=== PATIENT | female | born 1965 | race Caucasian/White ===

== ENCOUNTER 2016-10-24 23:16 | Inpatient (IN) | payer OTHER ==
[~2016-10-24] VITALS: Ht 165.1 cm; Wt 84.4 kg
[~2016-10-24 23:16] MED LIST: BENAZEPRIL HYDR20 MG PO; BUTALB/APAP/CAF1 TAB PO; FLUOXETINE HYDR20 MG PO; HYD25 PO; LEVOTHYROXIN0.075 MG PO; SAVELLA50 MG PO
[2016-10-24 23:49] LABS: PLATELET COUNT 330 x10^3mcL (130-400); RED CELL DISTRIBUTION WIDTH 13.2 % (11.5-14.5)
[2016-10-24 23:50] LABS: BASOPHIL % 0 % (0-2)
[2016-10-24 23:57] LABS: CALCIUM 8.8 mg/dL (8.5-10.1); CARBON DIOXIDE 33.7 mmol/L (21-32); CHLORIDE SERUM 99 mmol/L (98-107); GFR1 > 60 mL/min; GLUCOSE SERUM 136 mg/dL (74-106); POTASSIUM SERUM 3.3 mmol/L (3.5-5.1); SODIUM SERUM 136 mmol/L (136-145)
[2016-10-25] VITALS (8 sets, daily range): BP systolic 91–116; BP diastolic 56–77; Ht 165.1 cm; Wt 84.4 kg
[2016-10-25 00:02] LABS: ALBUMIN 3.7 g/dL (3.4-5.0); ALKALINE PHOSPHATASE 116 U/L (46-116); ALT/SGPT 27 U/L (14-59); AST/SGOT 18 U/L (15-37); BILIRUBIN TOTAL 0.3 mg/dL (0.20-1.00); TOTAL PROTEIN, SERUM 7.9 g/dL (6.4-8.2)
[2016-10-25] MEDS ORDERED: METOPROLOL TART25 M1 PO (03:48)
[2016-10-25] MEDS ORDERED: CLARITIN10 MG PO (03:49)
[2016-10-25] MEDS ORDERED: ATORVASTATIN CA40 M1 PO (03:49)
[2016-10-25] MEDS ORDERED: ZOLOFT50 MG PO (03:49)
[2016-10-25] MEDS ORDERED: COUMADIN5 MG PO (03:49)
[2016-10-25] MEDS ORDERED: CYMBALTA60 M1 PO (03:49)
[2016-10-25] MEDS ORDERED: ASPIR 8181 MG PO (03:50)
[2016-10-25 04:16] LABS: CHOLESTEROL/HDL RATIO 2.6; PHOSPHOROUS 3.4 mg/dL (2.5-4.9)
[2016-10-25 04:24] LABS: T3 TOTAL 0.87 ng/mL
[2016-10-25 04:28] LABS: FREE T4 1.08 ng/dL (0.76-1.46); FREE THYROXINE INDEX 2.9 ug/dL (1.4-4.5); T4(THYROXINE) 9.3 ug/dL (4.7-13.3)
[2016-10-25 07:11] LABS: CALCIUM 8.1 mg/dL (8.5-10.1); CARBON DIOXIDE 31.2 mmol/L (21-32); CHLORIDE SERUM 102 mmol/L (98-107); CREATININE SERUM 0.9 mg/dL (0.6-1.0); GFR1 > 60 mL/min; GLUCOSE SERUM 124 mg/dL (74-106); POTASSIUM SERUM 3.7 mmol/L (3.5-5.1); SODIUM SERUM 137 mmol/L (136-145)
[2016-10-25 07:15] LABS: BASOPHIL % 0.2 % (0-2); PLATELET COUNT 270 x10^3mcL (130-400); RED CELL DISTRIBUTION WIDTH 13.2 % (11.5-14.5)
[2016-10-25 16:18] LABS: BASOPHIL % 0.1 % (0-2); PLATELET COUNT 245 x10^3mcL (130-400); RED CELL DISTRIBUTION WIDTH 12.9 % (11.5-14.5)
[2016-10-25 20:35] LABS: UA SPECIFIC GRAVITY <=1.005 (1.005-1.035); microscopic required? YES; urine erythrocyte 3+ (NEGATIVE)
[2016-10-25 20:52] LABS: AMPHETAMINE QUAL UR NONE DETECTED (NEG <=1000)
[2016-10-26 06:09] VITALS: BP 119/80
[2016-10-26 06:10] LABS: BASOPHIL % 0.4 % (0-2); PLATELET COUNT 245 x10^3mcL (130-400); RED CELL DISTRIBUTION WIDTH 12.9 % (11.5-14.5)
[2016-10-26 06:22] LABS: CALCIUM 8.1 mg/dL (8.5-10.1); CARBON DIOXIDE 28.9 mmol/L (21-32); CHLORIDE SERUM 104 mmol/L (98-107); CREATININE SERUM 0.7 mg/dL (0.6-1.0); GFR1 > 60 mL/min; GLUCOSE SERUM 118 mg/dL (74-106); PHOSPHOROUS 2.9 mg/dL (2.5-4.9); POTASSIUM SERUM 3.6 mmol/L (3.5-5.1); SODIUM SERUM 139 mmol/L (136-145)
[2016-10-26 09:59] VITALS: BP 114/63
[2016-10-26 14:12] VITALS: BP 119/66
[2016-10-26 17:57] VITALS: BP 123/74
[2016-10-26] MEDS ORDERED: PROA PO (18:53)
[2016-10-26] MEDS ORDERED: ESGIC CAPSULE1 EACH PO (18:54)
[2016-10-26] MEDS ORDERED: MOR2I IV (18:54)
[2016-10-26] MEDS ORDERED: TYL325 PO (18:54)
[2016-10-26] MEDS ORDERED: ZOFI IM (18:55)
[2016-10-26] MEDS ORDERED: COL100 PO (18:55)
[2016-10-26] MEDS ORDERED: SYN75 PO (18:59)
[2016-10-26 21:52] VITALS: BP 115/76
[2016-10-27 06:20] VITALS: BP 116/91
[2016-10-27 06:32] LABS: CALCIUM 8.3 mg/dL (8.5-10.1); CARBON DIOXIDE 29.3 mmol/L (21-32); CHLORIDE SERUM 104 mmol/L (98-107); CREATININE SERUM 0.8 mg/dL (0.6-1.0); GFR1 > 60 mL/min; GLUCOSE SERUM 104 mg/dL (74-106); PHOSPHOROUS 2.9 mg/dL (2.5-4.9); POTASSIUM SERUM 3.8 mmol/L (3.5-5.1); SODIUM SERUM 139 mmol/L (136-145)
[2016-10-27 07:17] LABS: BASOPHIL % 0.5 % (0-2); PLATELET COUNT 242 x10^3mcL (130-400); RED CELL DISTRIBUTION WIDTH 13.3 % (11.5-14.5)
[2016-10-27 07:21] LABS: rbc morphology (normal/abnorm) ABNORMAL (NORMAL)
[2016-10-27 10:30] VITALS: BP 110/68
[2016-10-27 11:34] LABS: BILIRUBIN DIRECT 0.08 mg/dL (0.0-0.2); BILIRUBIN TOTAL 0.29 mg/dL (0.20-1.00)
[2016-10-27 11:35] LABS: ALBUMIN 2.8 g/dL (3.4-5.0)
[2016-10-27 12:23] LABS: BASOPHIL % 0.6 % (0-2); PLATELET COUNT 268 x10^3mcL (130-400); RED CELL DISTRIBUTION WIDTH 13.5 % (11.5-14.5)
[2016-10-27 12:30] LABS: rbc morphology (normal/abnorm) ABNORMAL (NORMAL)
[2016-10-27 14:51] VITALS: BP 127/72
[2016-10-27 14:59] VITALS: BP 123/71
[2016-10-27] MEDS ORDERED: SAVELLA50 M1 (15:05)
[2016-10-27] MEDS ORDERED: FLUOXETINE HYDR20 M2 PO (15:06)
[2016-10-27] MEDS ORDERED: BENAZEPRIL HYDR20 M1 PO (15:06)
== END 2016-10-27 15:40 | disposition short-term general hospital (02) | DRG 48 ==
LOC: ED 23:16 → DU 10-25 01:44 → MU 10-27 05:04
PROVIDERS: Emergency Medicine; Family Medicine; ADMIT Family Medicine
DX: G90.9 Disorder of the autonomic nervous system, unspecified (principal); N17.0 Acute kidney failure with tubular necrosis; D62 Acute posthemorrhagic anemia; I10 Essential (primary) hypertension; F41.9 Anxiety disorder, unspecified; E03.9 Hypothyroidism, unspecified; F32.9 Major depressive disorder, single episode, unspecified; T45.515A Adverse effect of anticoagulants, initial encounter; D64.9 Anemia, unspecified; M79.7 Fibromyalgia; E87.6 Hypokalemia; N83.201 Unspecified ovarian cyst, right side; Z86.718 Personal history of other venous thrombosis and embolism; Z79.01 Long term (current) use of anticoagulants
CPT/HCPCS: 36600; 80307; 82962; 83880; 84439; J2270; J2405; J3430; J7030; J7040; J7050; P9016; Q0092; Q0163; Q9967